=== PATIENT | female | born 1985 | race Caucasian/White ===

== ENCOUNTER 2019-07-19 01:34 | Emergency (ER) | payer OTHER ==
[~2019-07-19] VITALS: Ht 162.6 cm; Wt 78.0 kg
--- NOTE | 2019-07-19 02:06 | PHYS DOC ---
Past History Past Medical History: No Pertinent History Past Surgical History: No Surgical History Alcohol Use: None Drug Use: None Adult General Chief Complaint Chief Complaint: ANKLE PROBLEM.." I twisted my Lt ankle and foot.. it still swollen and tender... I put Ice on it.. 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 ankle and foot. Patient has obvious swelling of left ankle and foot. + Ant. draw and crepitation. + Foot squeeze pain. Dorsal pedal pulses are equal to right foot and ankle. Patient denies other injuries. No upper leg tenderness. No history immunosuppression. No history of coagulopathy. Review of Systems Review of Systems Constitutional: Denies fever or chills [] Eyes: Denies change in visual acuity, redness, or eye pain [] HENT: Denies nasal congestion or sore throat [] Respiratory: Denies cough or shortness of breath [] Cardiovascular: No additional information not addressed in HPI [] GI: Denies abdominal pain, nausea, vomiting, bloody stools or diarrhea [] : Denies dysuria or hematuria [] Musculoskeletal: Denies back pain or joint pain- [Except complaints of left ankle and foot injury as per history of present illness Integument: Denies rash or skin lesions [] Neurologic: Denies headache, focal weakness or sensory changes [] Endocrine: Denies polyuria or polydipsia [] All other systems were reviewed and found to be within normal limits, except as documented in this note. Family History Family History Noncontributory Current Medications Current Medications See nursing for home meds Allergies Allergies Allergies Coded Allergies Type Severity Reaction Last Updated Verified shrimp Allergy Severe Swelling 07/19/19 Yes Physical Exam Physical Exam Constitutional: in acute distress, non-toxic appearance. [] HENT: Normocephalic, atraumatic, bilateral external ears normal, oropharynx moist, no oral exudates, nose normal. [] Eyes: PERRLA, EOMI, conjunctiva normal, no discharge. [] Neck: Normal range of motion, no tenderness, supple, no stridor. [] Cardiovascular:Heart rate regular rhythm, no murmur [] Lungs & Thorax: Bilateral breath sounds clear to auscultation [] Abdomen: Bowel sounds normal, soft, no tenderness, no masses, no pulsatile masses. [] Skin: Warm, dry, no erythema, no rash. [] Back: No tenderness, no CVA tenderness. [] Extremities: No tenderness, no cyanosis, no clubbing, ROM intact, no edema. [] Except findings of edema and pain in left ankle and foot as per history of present illness. Neurologic: Alert and oriented X 3, normal motor function, normal sensory function, no focal deficits noted. [] Psychologic: Affect anxious, judgement normal, mood normal. [] Current Patient Data Vital Signs Vital Signs Date Time Temp Pulse Resp B/P (MAP) Pulse Ox O2 Delivery O2 Flow Rate FiO2 07/19/19 01:34 98.5 84 18 98 Room Air EKG EKG [] Radiology/Procedures Radiology/Procedures [address] [address] IMAGING REPORT Signed PATIENT: AIRAM NUR ACCOUNT: [id number] : 1985 LOCATION: ER AGE: 33 SEX: F EXAM STATUS: REG ER ORD. PHYSICIAN: LEONIDES ARIAS MD REASON: injury PROCEDURE: FOOT LEFT 3V Indication: Injury. TECHNIQUE: 3 views of the left ankle and 3 views of the left foot COMPARISON: None Findings/ impression: No acute fracture or dislocation. Electronically signed by: Cristela Serrato DO (07/19/2019 2:09 AM) [facility] DICTATED AND SIGNED BY: CRISTELA SERRATO DO DATE: 07/19/19208 CC: LEONIDES ARIAS MD; PCP,NO ~ [][address] [address] IMAGING REPORT Signed PATIENT: AIRAM NUR ACCOUNT: [id number] : 1985 LOCATION: ER AGE: 33 SEX: F EXAM STATUS: REG ER ORD. PHYSICIAN: LEONIDES ARIAS MD REASON: injury, TWISTED PLYING SOCCER, LAT. PAIN & SWELLING. PROCEDURE: ANKLE LEFT 3V Indication: Injury. TECHNIQUE: 3 views of the left ankle and 3 views of the left foot COMPARISON: None Findings/ impression: No acute fracture or dislocation. Electronically signed by: Cristela Serrato DO (07/19/2019 2:09 AM) [facility] DICTATED AND SIGNED BY: CRISTELA SERRATO DO DATE: 07/19/199 CC: LEONIDES ARIAS MD; PCP,N Course & Med Decision Making Course & Med Decision Making Pertinent Labs and Imaging studies reviewed. (See chart for details) Distal neuro vascular intact post splint stirrup and Cuco wrap. Ice, elevation, splint, and follow-up primary care. Follow-up orthro.. [] Dragon Disclaimer Dragon Disclaimer This electronic medical record was generated, in whole or in part, using a voice recognition dictation system. Departure Departure: Disposition: 01 HOME/RESIDENCE PRIOR TO ADM Condition: STABLE Referrals: PCP,NO (PCP) Discharge Summary Visit Information Final Diagnosis Problems Medical Problems: (1) Strain of ankle and foot Status: Acute Brief Hospital Course Allergies Allergies Coded Allergies Type Severity Reaction Last Updated Verified shrimp Allergy Severe Swelling 07/19/19 Yes Vital Signs Vital Signs Date Time Temp Pulse Resp B/P (MAP) Pulse Ox O2 Delivery O2 Flow Rate FiO2 07/19/19 01:34 98.5 84 18 98 Room Air Brief Hospital Course Ms. Nur is a 33 old [sex] who presented with [ ] Dragon Disclaimer This chart was dictated in whole or in part using Voice Recognition software in a busy, high-work load, and often noisy Emergency Department environment. It may contain unintended and wholly unrecognized errors or omissions. LEONIDES ARIAS MD Jul 19, 2019 02:06
--- NOTE | 2019-07-19 02:12 | RAD ---
Indication: Injury. TECHNIQUE: 3 views of the left ankle and 3 views of the left foot COMPARISON: None Findings/ impression: No acute fracture or dislocation. Electronically signed by: Kade Serrato DO (07/19/2019 2:09 AM) [facility]
--- NOTE | 2019-07-19 02:12 | RAD ---
Indication: Injury. TECHNIQUE: 3 views of the left ankle and 3 views of the left foot COMPARISON: None Findings/ impression: No acute fracture or dislocation. Electronically signed by: Kade Serrato DO (07/19/2019 2:09 AM) [facility]
[2019-07-19 02:35] VITALS: BP 165/93
== END 2019-07-19 02:35 | disposition home or self-care (01) ==
LOC: ER 01:34
DX: S96.912A Strain of unspecified muscle and tendon at ankle and foot level, left foot, initial encounter (principal); Z91.013 Allergy to seafood; X50.1XXA Overexertion from prolonged static or awkward postures, initial encounter; Y93.89 Activity, other specified; Y92.89 Other specified places as the place of occurrence of the external cause; Y99.8 Other external cause status
CPT/HCPCS: 29515; 73610; 73630; 99284

== ENCOUNTER → 2019-12-19 | Outpatient (CLI) | payer OTHER | END | disposition home or self-care (01) | LOC: LAB 15:33 | PROVIDERS: ATTEND Internal Medicine Cardiovascular Disease | DX: Z20.828 Contact with and (suspected) exposure to other viral communicable diseases (principal) | CPT/HCPCS: 87635 ==

== ENCOUNTER → 2021-09-19 | Outpatient (CLI) | payer OTHER | LOC: LAB 01:38 | PROVIDERS: ATTEND Internal Medicine Cardiovascular Disease | DX: U07.1 COVID-19 (principal); R09.81 Nasal congestion; R68.89 Other general symptoms and signs; R53.81 Other malaise | CPT/HCPCS: U0003 ==